=== PATIENT | male | born 1965 | race Caucasian/White ===

== ENCOUNTER 2021-04-20 09:24 | Outpatient (REF) | payer OTHER, SELFPAY ==
--- NOTE | ~2021-04-20 | XR_ITS ---
EXAMINATION: XR LUMBOSACRAL SPINE CLINICAL INFORMATION: Low back pain COMPARISON: None TECHNIQUE: Three views of the lumbosacral spine. FINDINGS: Bone alignment is normal. No fracture or dislocation is seen. Disc spaces are normal. There is lower lumbar spine facet arthritis. XR/XR lumbar spine 2-3V IMPRESSION: Lower lumbar spine facet arthritis.
[2021-04-20 10:50] LABS: PSA,Total (Free>4and<10) 0.88 ng/mL (0.00-4.00)
[2021-04-20 11:05] LABS: Glucose Urine UA NEG (NEG); Leukocyte Esterase Urine NEG (NEG); Nitrite Urine NEG (NEG); Specific Gravity - Urine >= 1.030 (1.005-1.025); Urine Blood 3+ (NEG); Urine Ketones NEG (NEG); Urine Protein TRACE MG/DL (NEG-TRACE)
[2021-04-20 11:18] LABS: Appearance Urine HAZY; Color Urine YELLOW
[2021-04-20 11:52] LABS: Calcium Phosphate Crystals Ur TRACE /LPF; Squamous Epithelial Cell Urine TRACE /LPF
== END 2021-04-20 09:25 | disposition home or self-care (01) ==
LOC: HO.LAB 09:24
PROVIDERS: PCP Family Medicine; Visit Provider Family Medicine
DX: Z12.5 Encounter for screening for malignant neoplasm of prostate (principal); M54.5 Low back pain; N20.0 Calculus of kidney; R80.9 Proteinuria, unspecified
CPT/HCPCS: 36415; 72100; 81001; 84153; 87086

== ENCOUNTER 2021-05-08 14:29 | Outpatient (REF) | payer OTHER, SELFPAY ==
--- NOTE | ~2021-05-08 | US_ITS ---
EXAMINATION: US RETROPERITONEAL COMPLETE (RENAL) CLINICAL INFORMATION: Left flank pain. History of kidney stones. Hematuria. COMPARISON: [facility] 11/16/2018. Ultrasound abdomen Limited 09/04/2018. CT abdomen and pelvis 09/04/2018. TECHNIQUE: Real-time imaging of the kidneys and bladder. FINDINGS: RIGHT KIDNEY: 11.7 x 5.8 x 5.1 cm (SAG x AP x TRV). The kidney is normal in size, contour, and echogenicity. Renal cortical thickness is normal. There is severe right hydronephrosis. There is right renal cortical thinning suggestive of long-standing obstruction. No renal calculi or focal parenchymal lesions. LEFT KIDNEY: 10.5 x 5.9 x 5.9 cm (SAG x AP x TRV). The kidney is normal in size, contour, and echogenicity. Renal cortical thickness is normal. There is a 8 x 6 mm cyst in the lower pole. No renal calculi or hydronephrosis. BLADDER: Well distended and normal. Bilateral ureteral jets are not demonstrated. Prevoid bladder volume is 153.5 mL. Postvoid bladder volume is 4.7 mL. PROSTATE: The prostate gland is slightly enlarged measuring 4 x 2.8 x 5.5 cm, volume 31 mL. US/US retroperitoneal comp IMPRESSION: Severe right hydronephrosis similar to previous exams. No stone seen. Small left renal cyst.
== END 2021-05-08 14:30 | disposition home or self-care (01) ==
LOC: HO.US 14:29
PROVIDERS: Visit Provider Internal Medicine
DX: R10.9 Unspecified abdominal pain (principal)
CPT/HCPCS: 76770